=== PATIENT | female | born 1930 | race Caucasian/White ===

== ENCOUNTER → 2016-09-10 | Outpatient (CLI) | payer MEDICARE, OTHER ==
[~2016-09-10] MED LIST: ACID CONTROL150 MG PO; ASPIRIN LO-DOSE81 MG PO; BRILINTA90 MG PO; BUDESONIDE EC3 MG PO; CIPRO500 MG PO; CRANBERRY500 M1 PO; CRESTOR10 MG PO; ECOTRIN325 MG PO; FOLIC ACID1 MG PO; LACTINEX (FLORA1 TAB PO; LEVOTHROID (SY50 MCG PO; LEXAPRO10 MG PO; LOMOTIL1 TAB PO; LOPRESSOR12.5 MG/0. PO; LOTREL 10-20 M1 EACH PO; NITROSTAT0.4 MG SL; PLAVIX75 MG PO; PRINIVIL (ZESTRI5 MG PO; PROBIOTIC1 EAC1 PO; TRICOR145 MG PO; TYLENOL325 MG PO; ZOCOR40 MG PO; ZOFRAN ODT4 MG PO
== END | disposition disaster alternative care site (69) ==
LOC: GRAD 13:02
DX: R63.4 Abnormal weight loss (principal); N26.1 Atrophy of kidney (terminal); R19.7 Diarrhea, unspecified

== ENCOUNTER 2016-11-17 08:16 | Observation (INO) | payer MEDICARE, OTHER ==
[~2016-11-17] VITALS: Ht 167.6 cm; Wt 62.2 kg
--- NOTE | ~2016-11-17 | CON ---
PATIENT'S NAME: AKILAH HIGGINS [facility] AGE: 86 Y [address] ROOM: [address] [address] LOCATION: [facility] [place] ADMIT DATE: 11/17/2016 Consultation DISCHARGE DATE: FAMILY PHYSICIAN: THOMAS HART MD ATTENDING PHYSICIAN: THOMAS HART REFERRING PHYSICIAN: Thomas Hart MD REASON FOR CONSULT: Syncope. HISTORY OF PRESENT ILLNESS: This is an 86-year-old female who was admitted to the hospital after a syncopal episode while she was sitting at the table. It was witnessed by her daughter. When she awoken, she was lightheaded, dizzy, and nauseated and vomited. Her cardiac enzymes were all normal. Her EKG showed a regular sinus rhythm with sinus virginie without ST or T-wave changes. The patient reports that she has been having problems with lightheadedness mostly with standing. She was seen by Dr. Bae on 11/05/2016, and her blood pressure medication was decreased at that time. Her blood pressures were in the 100s/50s. She has still continued to have problems with lightheadedness and dizziness. She denies any problems with palpitations. She denies problems with shortness of breath, orthopnea, PND, or peripheral edema. PAST MEDICAL HISTORY: 1. Coronary artery disease with non-Q-wave myocardial infarction in 2014. 2. Peripheral vascular disease with SILVERLIGHT DEVELOPER and stent to the left renal artery. 3. Essential hypertension. 4. Hyperlipidemia. 5. History of CVA x2. 6. Hypothyroidism. 7. Chronic kidney disease. 8. Diabetes mellitus, diet controlled. PAST SURGICAL HISTORY: 1. Back surgery x2. 2. Hysterectomy. 3. Appendectomy. 4. Cholecystectomy. 5. Left heart catheterization with PTCA and stent to the RCA on 04/14/2001. 6. Left heart catheterization with renal angiogram on 07/12/2004. 7. Cholecystectomy. 8. Left heart catheterization with renal angiogram, PTCA and stent, LAD on 06/13/2006. 9. Left heart catheterization, renal angiogram, PTCI and stent, mid LAD on 07/04/2008. 10. Renal angiogram with SILVERLIGHT DEVELOPER and stent, left renal artery on 08/17/2008. PATIENT'S NAME: AKILAH HIGGINS [facility] AGE: 86 Y [address] ROOM: [address] [address] LOCATION: [facility] [place] ADMIT DATE: 11/17/2016 Consultation DISCHARGE DATE: FAMILY PHYSICIAN: THOMAS HART MD ATTENDING PHYSICIAN: THOMAS HART 11. Left heart catheterization, PTCI - stent diagonal on 06/26/2010. 12. Left heart catheterization, PTCI - stent RCA on 12/14/2014. ALLERGIES: CODEINE, SULFA, PEANUTS, LACTOSE, AND BANANAS. CURRENT MEDICATIONS: 1. Aspirin 81 mg daily. 2. Fenofibrate 145 mg daily. 3. Folic acid 1 mg tablet daily. 4. Levothyroxine 50 mcg 1 tablet daily. 5. Lisinopril 5 mg b.i.d. 6. Nitrostat 0.4 mg sublingual as needed. 7. Probiotic 1 capsule orally daily. 8. Simvastatin 40 mg every bedtime. 9. Budesonide EC 3 mg extended release 3 tablets daily. 10. Ondansetron 4 mg p.r.n. 11. Ranitidine 150 mg every day. FAMILY HISTORY: Father is ; he had TB and heart disease. Mother of pancreatic cancer and heart disease. She has a brother who is alive with TB and a sister with lung disease. SOCIAL HISTORY: She smokes 6 cigarettes a day and has done so since 1954. She does not drink alcohol. She is . REVIEW OF SYSTEMS: GENERAL: She has complaints of some mild fatigue. HEAD: No history of headaches. EYES: No blurred vision or double vision. EARS: No problems with hearing. NOSE: No epistaxis or rhinorrhea. MOUTH: No gingival bleeding. THROAT: Denies sore throat, hoarseness, or difficulty swallowing. CV: Per HPI. PULMONARY: She denies cough, hemoptysis, or sputum production. GASTROINTESTINAL: Negative for nausea, vomiting, or diarrhea. No melena or hematochezia. No recent GI bleed or blood in the stools. : Negative for dysuria, polyuria, or hematuria. No frequent urination. ENDOCRINE: She is a diet-controlled diabetic. She is on Synthroid replacement therapy. NEUROLOGIC: Denies anxiety. DERMATOLOGIC: She denies skin rashes or cancers. PATIENT'S NAME: GISELA AKILAH Karen [facility] AGE: 86 Y [address] ROOM: [address] [address] LOCATION: [facility] [place] ADMIT DATE: 11/17/2016 Consultation DISCHARGE DATE: FAMILY PHYSICIAN: THOMAS HART MD ATTENDING PHYSICIAN: THOMAS HART HEMATOLOGIC: Negative for bleeding disorders. MUSCULOSKELETAL: She denies arthralgias or myalgias. PHYSICAL EXAMINATION: VITAL SIGNS: Height is 5 feet 6 inches. She is 66 inches tall. Blood pressure is 147/59, heart rate is 52 to 60. GENERAL: She is alert and oriented. SKIN: Warm, dry, and pink. HEENT: Pupils equal, round, and react briskly to light. EOMs are intact. NECK: Soft and supple. No lymphadenopathy or thyromegaly. JVD is flat. No carotid bruits. CV: Regular with a normal S1 and S2, without murmur, rub, or click. LUNGS: Lung sounds are clear anteriorly and posteriorly without evidence of wheezes, rales, or rhonchi. GASTROINTESTINAL: Her abdomen is soft. Bowel sounds are present in all 4 quadrants. No hepatosplenomegaly is noted. EXTREMITIES: Show no peripheral edema. No clubbing. No cyanosis. Distal pulses are 2+/4. NEUROLOGIC: She is alert and oriented to person, place, and time. SKIN: Warm, dry, and pink. PSYCHIATRIC: Mood and affect are pleasant and normal. LABORATORY DATA: Lactate was 0.9. Cardiac enzymes are negative x3. CBC: Hemoglobin is 9.5, WBC is 6.3, platelets are 324. Chem panel: Glucose is 103, BUN 16, creatinine 1.3, sodium 129, potassium is 4.1, magnesium is 2.2, TSH is 1.5. ASSESSMENT: Syncope: We are going to do orthostatic blood pressures and place her on telemetry. We did review her EKG, it is showing a sinus rhythm, sinus bradycardia. Further recommendations will be forthcoming as Dr. Bae reviews her echocardiogram that was previously ordered. KRISTINA VERAS APRN FOR MD MILY TUCKER/mansoorl /[id number] d: 11/19/16299 t: 11/29/16921, CONSULTATION REPORT
--- NOTE | ~2016-11-17 | ENPV ---
Carotid Duplex Study Demographics Patient Name AKILAH HIGGINS Date of Study 11/18/2016 Patient Number [id number] Gender Female Date of 1930 Age 86 Visit Number [id number] Height 66 Accession Number [id number] Weight 135 Referring Tanner Mixon MD Physician MD Physician Physician Ordering Physician In Processing Instructor Quality Assurance Practice Manager Christina Lloyd [facility] Conclusions Summary The right internal carotid artery has severe, 60-79%, plaque and stenosis. There is a moderate degree of smooth homogeneous plaque in the right carotid bifurcation . The right vertebral artery is antegrade. The left internal carotid artery has mild, 1-39%, plaque and stenosis. There is a mild amount of smooth homogeneous plaque in the left carotid bifurcation and proximal ICA. The left vertebral artery is antegrade. Procedure Type of Study: Cerebral:Carotid, Carotid Doppler Bilateral. Appropriate Use Criteria:7 Allergies - Peanuts:(pcn,codiene,sulfa, lactose,peanuts, bannanas). - Penicillin. Blood Pressure:Right arm 118/43 mmHg.Left arm 126/43 mmHg. Heart Rate:66 BPM. Patient Status:Routine. Study Location:Inpatient Portable. Technical Quality:Good visualization. Velocities are measured in cm/s ; Diameters are measured in cm Carotid Right Measurements Carotid Left Measurements + +--------+--------+ + + + +--------+- -------+ + + !Location !PSV !EDV !Angle !%Stenosis ! !Location !PSV !E DV !Angle !%Stenosis ! + +--------+--------+ + + + +--------+- -------+ + + !Prox CCA !108 !12 !60 ! ! !Prox CCA !106 !1 2 !58 ! ! + +--------+--------+ + + + +--------+- -------+ + + !Dist CCA !80 !10 !60 ! ! !Dist CCA !82 !1 2 !56 ! ! + +--------+--------+ + + + +--------+- -------+ + + !Prox ICA !239 !47 !58 ! ! !Prox ICA !94 !1 8 !56 ! ! + +--------+--------+ + + + +--------+- -------+ + + !Dist ICA !206 !40 !58 ! ! !Dist ICA !108 !2 1 !56 ! ! + +--------+--------+ + + + +--------+- -------+ + + !Prox ECA !224 ! !48 ! ! !Prox ECA !121 ! !56 ! ! + +--------+--------+ + + + +--------+- -------+ + + !Vertebral !53 !9 !60 ! ! !Vertebral !94 !1 9 !58 ! ! + +--------+--------+ + + + +--------+- -------+ + + - There is antegrade vertebral flow noted on the right side. - There is antegrade verte bral flow noted on the left side. - Add'l Measurements:ICAPSV/CCAPSV 2.21.ICAEDV/CCAEDV 3.92. - Add'l Measurements:ICAPS V/CCAPSV 1.02.ICAEDV/CCAEDV 1.8. Impressions Right Impression There is a moderate degree of smooth homogeneous plaque in the right carotid bifurcation . The right vertebral artery is antegrade. Left Impression There is a mild amount of smooth homogeneous plaque in the left carotid bifurcation and proximal ICA. The left vertebral artery is antegrade. Signature dtt: Phani Liang: 11/18/16 0900 Physician Self Edit
--- NOTE | ~2016-11-17 | ER ---
PATIENT'S NAME: AKILAH HIGGINS [facility] AGE: 86 Y [address] ROOM: [place] [address] [place] [facility] [place] ADMIT DATE: 11/17/2016 ER/Outpatient Report DISCHARGE DATE: FAMILY PHYSICIAN: THOMAS HEDRICK MD ATTENDING PHYSICIAN: THOMAS HEDRICK Admission date and time documented on the medical record. I saw the patient at 0825 hours. CHIEF COMPLAINT: Syncopal episode. HISTORY OF PRESENT ILLNESS: The patient is an 86-year-old female, who was sitting at the table with her daughters and she became unresponsive, had a syncopal episode. She was lightheaded, dizzy with nausea. She did vomit once. No diarrhea, no incontinence of stool or urine, no seizure activity. The patient was brought to the emergency room by paramedics via ambulance for evaluation. The patient did have orthostatic changes on her blood pressures here in the emergency department. She was quite weak, lethargic, and lightheaded. No chest pain, shortness of breath, or abdominal pain. No headache; eyes, ears, nose, throat, neck, or spine pain. Did not hit her head. No fall or trauma. No recent coughs, colds, flus, fever, chills, or sweats. No skin eruptions or rash. No joint or muscle swelling, redness, or pain. Does have a history of hypothyroidism, but no diabetes. No history of neuro changes or psych issues. HOME MEDICATIONS: See attached medication list. ALLERGIES: CODEINE, PENICILLIN, SULFA, AND LACTULOSE. SOCIAL HISTORY: The patient smokes about 3 to 4 cigarettes a day, nondrinker. SIGNIFICANT PAST MEDICAL HISTORY: Atherosclerotic ischemic heart disease, coronary artery disease, renal artery stenosis, anxiety, depression, hypertension, diverticulosis, diverticulitis, dyslipidemia, hypothyroidism, tobacco abuse, colon polyps. OPERATIONS: Back surgery, appendectomy, cholecystectomy, hysterectomy, colonoscopy with polypectomy, renal artery stenting, cardiac catheterization with PTCA and stenting. PATIENT'S NAME: AKILAH HIGGINS [facility] AGE: 86 Y [address] ROOM: [place] [address] [place]: [facility] [place] ADMIT DATE: 11/17/2016 ER/Outpatient Report DISCHARGE DATE: FAMILY PHYSICIAN: THOMAS HEDRICK MD ATTENDING PHYSICIAN: THOMAS HEDRICK REVIEW OF SYSTEMS: All systems reviewed by me are negative with the exception of those discussed in the history of present illness. PHYSICAL EXAMINATION: VITAL SIGNS: Temperature 96.9 tympanic, pulse 64 and regular, respirations 20, blood pressure 156/66, O2 saturation on room air is 97%. HEAD: Normocephalic. EYES EARS, NOSE, AND THROAT: Clear. Mucous membranes are little dry. NECK: No nuchal rigidity. No findings of adenopathy. LUNGS: Clear. Good air flow. No rales, rhonchi, or wheezes. HEART: Regular. Pulses are palpable. No chest wall or ribcage pain to palpation. ABDOMEN: Soft, nondistended, nontender. Good bowel tones. No organomegaly or abnormal mass palpable. EXTREMITIES: No peripheral edema, cyanosis, or deformity. NEURO: Cranial nerves intact. No lateralized sign. The patient is awake, cooperative. Motor and sensory intact. SKIN: Clear. No skin eruptions or rash. LABORATORY DATA AND X-RAYS: Point of care cardiac enzymes are normal x2, 2 hours apart. CPK was normal x2, 2 hours apart. Pro calcitonin was less than 0.05. Lactate was 0.9. CMS was normal except for a low sodium of 129, elevated glucose of 103, low calcium of 7.6, elevated creatinine of 1.3, low GFR of 39, magnesium 2.2. CRP was 1.38. Thyroid tests were normal. ProBNP was normal at 304. D-dimer was elevated at 2.57. White count 6300, 74 segs, 15 lymphs, 8 monos, 2 eos, hemoglobin was 9.5, hematocrit 28.5, platelet count was 324,000. PTT was 29, protime 10 with an INR of 0.95. EKG showed sinus rhythm. No acute ST elevation, ischemic change, or arrhythmia. CT scan of the head showed no acute bleed, midline shift mass effect, or skull fracture. Did do a V/Q scan of the lungs because of the elevated D-dimer, results pending. Did give the patient 1 L normal saline IV in the emergency room and Zofran for nausea. The hydration with 1 L normal saline markedly improved the patient's condition. IMPRESSION: 1. Syncope, etiology undetermined. 2. Orthostatic blood pressure changes. 3. Atherosclerotic ischemic heart disease and coronary artery disease. 4. History of renal artery stenosis. 5. Anxiety and depression. 6. Hypertension. 7. Dyslipidemia. 8. Hypothyroidism. 9. Tobacco abuse. PATIENT'S NAME: AKILAH HIGGINS [facility] AGE: 86 Y [address] ROOM: [place] [address] LOCATION: [facility] [place] ADMIT DATE: 11/17/2016 ER/Outpatient Report DISCHARGE DATE: FAMILY PHYSICIAN: THOMAS HEDRICK MD ATTENDING PHYSICIAN: THOMAS HEDRICK PLAN: I discussed the patient with Dr. Ortiz, her personal physician. We will admit the patient to the hospital for further evaluation and treatment. Discussion ensued with the patient concerning my findings and recommendations. She and her family understand. She will be admitted outpatient. MD VINAYAK MORALEZ/modl /[id number] d: 11/17/16 2129 t: 11/18/16 0650, OUTPATIENT REPORT
--- NOTE | ~2016-11-17 | ECHO ---
Transthoracic Echocardiography Report (TTE) Demographics Patient Name AKILAH HIGGINS Date of Study 11/18/2016 Patient Number [id number] Visit Number [id number] Date of 1930 Room Number G3204 Accession Number [id number] Gender Female Age 86 year(s) Referring Tanner Govea Water Control Supervisor Christina Lloyd Physician [facility] Physician Interpreting [facility] Cloth Shrinking Machine Operator Helper Physician Jessy DÍAZ Supervising Ordering Physician /MLP Nurse Stress Plumbing Engineering Draftsperson Conclusions Contractility Score Summary Normal Left Ventricular contractility was noted. Summary Normal LV/RV size and systolic function. The estimated left ventricular ejection fraction is 65%. Moderate concentric left ventricular hypertrophy. Diastolic assessment reveals Grade I diastolic dysfunction. The left atrium is mildly dilated by LA volume index measurement. Mild tricuspid regurgitation by color Doppler.There is mild pulmonary hypertension. The pulmonary pressure (RVSP) is 47 mmHg. Procedure Type of Study TTE procedure:2D Echocardiogram. Procedure Date Date: 11/18/2016 Start: 08:38 AM Study Location: Inpatient Portable Indications:Syncope. Appropriate Use Criteria: 9 Patient Status: Routine HR: 63 bpm BP: 126/43 mmHg Allergies - Peanuts:(pcn,codiene,sulfa, lactose,peanuts, bannanas). - Penicillin. M-Mode/2D Measurements LV Diastolic Dimension: 3.74 cm LV Systolic Dimension: 2.25 cm LV Septum Diastolic: 1.34 cm LV PW Diastolic: 1.34 cm AO Root Dimension: 2.9 cm Cardiac Output: 5.68 l/min AV Cusp Separation: 0.9 cm LA volume: 75 ml LVOT: 2 cm LVOT VTI: 28.7 cm TAPSE: 1.65 cm LV Stroke volume: 90.12 ml Doppler Measurements AV Peak Velocity: 1.92 m/s MV Peak E-Wave: 0.97 m/s AV Peak Gradient: 14.75 mmHg MV Peak A-Wave: 1.2 m/s AV Mean Gradient: 7 mmHg MV E/A Ratio: 0.81 LVOT Peak Velocity: 1.26 m/s MV P1/2t: 65 msec TR Gradient:36.97 mmHg PV Peak Velocity: 1.48 m/s Estimated RAP:10 mmHg PV Peak Gradient: 8.76 mmHg Estimated RVSP: 47 mmHg Estimated PASP: 46.97 mmHg E' Septal Velocity: 0.06 m/s A' Septal Velocity: 0.09 m/s E' Lateral Velocity: 0.08 m/s A' Lateral Velocity: 0.1 m/s Findings Left Ventricle Moderate concentric left ventricular hypertrophy. Diastolic assessment reveals Grade I diastolic dysfunction. Right Ventricle Normal right ventricle structure and function. Left Atrium The left atrium is mildly dilated by LA volume index measurement. Right Atrium Normal right atrial size. IVC measures 1.04 cm with inspiratory collapse. Mitral Valve Trivial mitral regurgitation by color Doppler. Moderate to severe mitral annular calcification. Aortic Valve The aortic valve is moderately to severely sclerotic. The non coronary cusp is severely calcific. Tricuspid Valve Mild tricuspid regurgitation by color Doppler. There is mild pulmonary hypertension. The pulmonary pressure (RVSP) is 47 mmHg. Pulmonic Valve PV is not well seen. Contractility Score LV regional wall motion:(0-Non visualized 1-Normal 2-Hypokinesis 3-Akinesis 4-Dyskinesis 5-Aneurysm) Signature dtt: JESSY ORLANDO dtd: 11/18/16 0838 Physician Self Edit
[~2016-11-17 08:16] MED LIST changes: -ACID CONTROL150 MG PO; -ASPIRIN LO-DOSE81 MG PO; -BUDESONIDE EC3 MG PO; -FOLIC ACID1 MG PO; -LACTINEX (FLORA1 TAB PO; -PRINIVIL (ZESTRI5 MG PO; -PROBIOTIC1 EAC1 PO; -ZOFRAN ODT4 MG PO
[2016-11-17 08:56] LABS: BASOPHIL % 0.2 %; EOSINOPHIL # 0.2 K/uL (0.0-0.5); EOSINOPHIL % 2.4 %; HEMATOCRIT 28.5 % (30.0-46.0); HEMOGLOBIN 9.5 g/dL (10.0-15.0); IMMATURE GRANULOCYTE # 0.1 K/uL (0.0-0.3); IMMATURE GRANULOCYTE % 0.8 %; LYMPHOCYTE # 0.9 K/uL (0.8-4.0); LYMPHOCYTE % 14.9 %; MCH 31.7 pg (27.0-34.0); MCHC 33.3 gm/dL (32.0-36.5); MONOCYTE # 0.5 K/uL (0.0-1.0); MONOCYTE % 7.8 %; MPV 9.1 fl (9.4-12.4); NEUTROPHIL # (ANC) 4.7 K/uL (1.8-7.8); NEUTROPHIL % 73.9 %; NRBC % 0 /100WBC (0-0.00); PLATELET COUNT 324 K/uL (150-450); RDW-CV 12.3 % (11.9-14.6); WBC 6.3 K/uL (4.0-11.0)
[2016-11-17 09:04] LABS: INR - (THERAPEUTIC) 0.95 (0.92-1.07); PTT 29 SECONDS (25-32)
[2016-11-17 09:19] LABS: ALBUMIN 2.5 gm/dL (3.5-5.0); ALK PHOS 69 IU/L (33-138); ALT 14 IU/L (12-78); ANION GAP 14.1 (10.0-19.0); AST 18 IU/L (10-40); BLOOD UREA NITROGEN 16 mg/dL (6-24); CALCIUM 7.6 mg/dL (8.5-10.5); CHLORIDE 97 mMol/L (96-110); CO2 22 mMol/L (22-32); CPK 34 IU/L (21-215); CREATININE 1.3 mg/dL (0.5-1.1); ESTIMATED GFR (MDRD EQUATION) 39; MAGNESIUM 2.2 mg/dL (1.8-2.6); POTASSIUM 4.1 mMol/L (3.7-5.1); SODIUM 129 mMol/L (135-145); TOTAL PROTEIN 5.1 g/dL (6.0-8.4)
[2016-11-17 09:28] LABS: TOTAL BILIRUBIN 0.4 mg/dL (0.0-1.5)
[2016-11-17 11:18] LABS: CPK 32 IU/L (21-215)
[2016-11-17] MEDS ORDERED: BUDESONIDE EC3 MG PO (15:11)
[2016-11-17] MEDS ORDERED: ZOFRAN ODT4 MG PO (15:12)
[2016-11-17] MEDS ORDERED: ACID CONTROL150 MG PO (15:12)
[2016-11-17] MEDS ORDERED: FOLIC ACID1 MG PO (15:13)
[2016-11-17] MEDS ORDERED: PRINIVIL (ZESTRI5 MG PO (15:13)
[2016-11-17] MEDS ORDERED: ASPIRIN LO-DOSE81 MG PO (15:14)
[2016-11-17] MEDS ORDERED: PROBIOTIC1 EAC1 PO (15:14)
--- NOTE | 2016-11-17 17:56 | NUR ---
Patient is an 86 year old female who was admitted for syncope. Patient was at home with her daughters and had gone to get a cup of coffee and then went unresponsive. The ambulance brought her in. She has done this previously another time. Patient did come out of it. Did have orthostatic BP down in the ER. Did PE protocol workup. Echo in AM, to ask Dr. Bae to read. Caratoid doppler in the AM. EKG and cardiac enzymes at 0600. Tele ordered. VSS and on RA. Denies nausea and vomiting or pain. Daughters present at the time of admission. Ultra high fall risk for the patient fell recently and was syncopal. Alert and oriented x3. Cooperative with cares.
--- NOTE | 2016-11-18 03:51 | NUR ---
Significant Event: AAOX3. Regular diet, Gluten-free, pt knows what foods to avoid. PIV to L) Wrist SL. 600ml up in pitcher for days credit. Pt cooperative with cares, and uses call light appropriately. Denied feeling faint/dizziness/pain throughout shift. On Tele -- No calls. Follow up:
[2016-11-18 06:19] LABS: CPK 27 IU/L (21-215)
--- NOTE | 2016-11-18 14:22 | NUR ---
A-NUTRITION F/U (+)BM. DIET ADVANCED TO SOLIDS ON 11/17. NO C/O NAUSEA OR PAIN LABS: NA 138, K+ 3.5, GLU 110, BUN 4, SHOW CARD LETTERER 0.5, ALB 2.3 MEDS: MAG-OX, K-PHOS, CARAFATE DIET RX: LOW RESIDUE DIET. PO INATKE HAS BEEN 50-100%. RECEIVES ENSURE ENLIVE TID. VISITED W/PT RE: SUPPLEMENT; SHE REPORTS THAT SHE IS DRINKING THE ENSURE, BUT DOES NOT LIKE THE STRAWBERRY. APPETITE IS FAIR. SHE DOES NOT LIKE THE ENSURE CLEAR. D-AT NUTRITION RISK W/DECREASED ORAL INTAKE R/T ALTERED GI FXN AEB PT REPORT, RECENT SURGERY, AND INTAKE RECORDS. I-1)D/C ENSURE CLEAR TID 2)CONTINUE ENSURE ENLIVE TID; CHANGE THE STRAWBERRY AT DINNER TO CHOCOLATE, PER PT REQUEST. M/E-GOAL: PO INTAKE >/=50% FOR DURATION OF ADMIT 1)F/U PO INTAKE, SUPPLEMENT, GI, AND POC IN 3-5 DAYS 2)ASSIST NEEDED
--- NOTE | 2016-11-18 16:39 | NUR ---
SPOKE TO PATIENT AND HER DAUGHTER FROM [place],INTRODUCED CM AND OUR ROLE. PATIENT LIVES WITH HER DAUGHTER SARAH IN [place]. PLNA IS FOR HER TO GO BACK TO LIVE WITH SARAH BUT THE DAUGHTER FROM [place] VOICES CONCERNS ABOUT AKILAH BEING ALONE WHILE SARAH WORKS. I PRESENTED TO HER THE OPTION OF PRIVATE CARE GIVERS AND SARAH IS NOT OPENED TO THIS. PRESENETED OPTION OF HHC BUT HER DAUGHER DOES NOT FEEL THAT HHC WILL PROVIDE ENOUGH HELP. PRESENTED THE OPTION OF AKILAH GOING TO AN PATRICIA BUT HER DAUGHTER INFORMS ME THAT AN PATRICIA IS NOT AN OPTION THAT THEY WILL ONLY ALLOW AKILAH TO LIVE WITH SARAH. I PRESENTED THE OPTION OF AAA AND SHE WOULD LIKE INFO ABOUT THIS. I ALSO PRESENTED THE OPTION OF ADULT DAY CARE WHICH IS $54.00 A DAY AT A MINUM OF 4. HOURS. SHE IS GOING TO TALK TO HER SISTER ABOUT THIS. WILL CONT TO FOLLOW NEEDED.
--- NOTE | 2016-11-18 17:27 | NUR ---
AAOx3. Cooperative with cares. Up w/SBA, GB, and walker. Showered today. Ultra high fall risk w/syncopal episode at home. IV s/l'd to LW. Tolerating regular/gluten free diet well. Orthostatics done today per cardiology. VSS, afebrile, on RA. Denies n/v/d and pain. Encourage to dangle low and move slow.
--- NOTE | 2016-11-19 03:48 | NUR ---
Significant Event: Patient alert and oriented X4. Up with one person assist and walker. Dr. Bae (cardio) called to see if he was coming up so daughters wouldn't have to wait, he stated he would be around first thing in the morning. Fell on 11/14. Possibly home today pending cardiology? Vitals stable and on room air. Patient on telemetry, no calls. No complaints of dizziness this shift. Walking well. Denies pain or nausea this shift. VOiding fine. Follow up: Monitor dizziness
[2016-11-19] MEDS ORDERED: LACTINEX (FLORA1 TAB PO (09:53)
--- NOTE | 2016-11-19 11:30 | NUR ---
DISCHARGE: Pt. and daughter were explained discharge instructions, educated on medication changes, and d/c instructions. Verbalized understanding, no questions or concerns. Left with all belongings and prescriptions. IV d/c'd and tele off. Taken to front door by aide and driven home by daughter.
== END 2016-11-19 11:30 | disposition disaster alternative care site (69) ==
LOC: GMED 08:16 → GMSU 12:47
PROVIDERS: Emergency Medicine; ADMIT Family Medicine
DX: I95.1 Orthostatic hypotension (principal); I25.10 Atherosclerotic heart disease of native coronary artery without angina pectoris; I12.9 Hypertensive chronic kidney disease with stage 1 through stage 4 chronic kidney disease, or unspecified chronic kidney disease; E11.22 Type 2 diabetes mellitus with diabetic chronic kidney disease; N18.9 Chronic kidney disease, unspecified; E03.9 Hypothyroidism, unspecified; I25.2 Old myocardial infarction; E78.5 Hyperlipidemia, unspecified; F17.210 Nicotine dependence, cigarettes, uncomplicated; Z86.73 Personal history of transient ischemic attack (TIA), and cerebral infarction without residual deficits; Z88.2 Allergy status to sulfonamides; Z88.8 Allergy status to other drugs, medicaments and biological substances; Z79.82 Long term (current) use of aspirin; Z79.899 Other long term (current) drug therapy; Z90.49 Acquired absence of other specified parts of digestive tract; Z90.710 Acquired absence of both cervix and uterus; Z98.890 Other specified postprocedural states
CPT/HCPCS: A9539; A9540; G0378; J7030

== ENCOUNTER → 2016-11-17 | Outpatient (CLI) | payer MEDICARE, OTHER | END | disposition disaster alternative care site (69) | LOC: GAMB 07:51 | DX: R11.2 Nausea with vomiting, unspecified (principal); R42 Dizziness and giddiness; Z79.899 Other long term (current) drug therapy; Z88.0 Allergy status to penicillin; Z88.2 Allergy status to sulfonamides | CPT/HCPCS: A0425; A0427; J2405 ==

== ENCOUNTER 2016-11-28 08:41 | Emergency (ER) | payer MEDICARE, OTHER ==
--- NOTE | ~2016-11-28 | ER ---
PATIENT'S NAME: AKILHA HIGGINS [facility] AGE: 86 Y [address] ROOM: [place] [address] LOCATION: ED ADMIT DATE: 11/28/2016 ER/Outpatient Report DISCHARGE DATE: 11/28/2016 FAMILY PHYSICIAN: Matt Hart MD ATTENDING PHYSICIAN: Ilana Rousseau Time of Arrival: 0841 hours. Time of Evaluation: 0900 hours. IDENTIFICATION: An 86-year-old female. CHIEF COMPLAINT: An 86-year-old female with a syncopal episode. HISTORY OF PRESENT ILLNESS: The patient apparently had gone out for a smoke, came inside and was sitting in her seated walker when her daughter came in and found her kind of arched back and unresponsive. With stimulation, she did respond slowly and then took a while to respond. She has done this one other time. She was hospitalized on November 17, 2016, for a syncopal episode very similar in nature at that time. Apparently, she had a workup to include cardiac workup and everything was found to be unremarkable according to the patient and her daughter and Dr. Hart. The patient just feels kind of washed out, does not feel well, but nothing specific. No other complaints. ALLERGIES: PENICILLIN, SULFA, AND CODEINE. CURRENT MEDICATIONS: 1. Folic acid 1 mg daily. 2. Fenofibrate 145 mg daily. 3. Ranitidine 150 mg daily. 4. Levothyroxine 0.05 mg daily. 5. Simvastatin 40 mg daily. 6. Nitrostat p.r.n. 7. Ondansetron p.r.n. 8. Baby aspirin 81 mg daily. 9. Probiotics daily. MEDICAL PROBLEMS: Coronary artery disease with previous non Q-wave CT in 2015, peripheral vascular disease with stent to the left renal artery, essential hypertension, hyperlipidemia, history of CVA x2, hypothyroidism, chronic kidney disease, diabetes mellitus, diet controlled. PATIENT'S NAME: AKILAH HIGGINS [facility] AGE: 86 Y [address] ROOM: [place] [address] LOCATION: ED ADMIT DATE: 11/28/2016 ER/Outpatient Report DISCHARGE DATE: 11/28/2016 FAMILY PHYSICIAN: Matt Hart MD ATTENDING PHYSICIAN: Ilana Rousseau PRIOR SURGERIES: Back surgery x2, hysterectomy, appendectomy, cholecystectomy, cardiac stents, left renal artery stent. FAMILY HISTORY: Father , he had TB and heart disease. Mother secondary to pancreatic cancer and heart disease. Brother alive with TB and a sister with lung disease. SOCIAL HISTORY: The patient lives here in town. Her daughter lives with her. Tobacco use, 4- 5 cigarettes per day. Alcohol use, denies. Drug use, denies. REVIEW OF SYSTEMS: All systems reviewed and negative other than what is noted in the HPI. PHYSICAL EXAMINATION: VITAL SIGNS: Height 5 feet 6 inches, weight 63.7 kg. Blood pressure 155/70, pulse 66, respirations 16, saturations 95%. GENERAL: An 86-year-old female, in no acute distress. HEENT: Head: Normocephalic, atraumatic. Ears: TMs translucent, both ears. Eyes: Pupils are equal and reactive to light and accommodation. Extraocular movements intact. Nose: Mucosa pink. No lesions. Mouth: No lesions. Pharynx benign. NECK: Supple. No lymphadenopathy. LUNGS: Clear to auscultation. No rhonchi, wheezes, or rales. HEART: Regular rate and rhythm. No murmur, rub, or gallop. ABDOMEN: Bowel sounds are present. Soft, nondistended, nontender. SKIN: [place], warm, and dry. No lesions or rashes noted. NEURO: The patient is alert and oriented x4. Cranial nerves 2 through 12 grossly intact. Motor strength 5/5 throughout. Sensation is intact to light touch. No lower extremity edema. No calf tenderness. LABORATORY DATA: Hemoglobin 10.2, which is improved from 9.5, November 17, 2016; hematocrit 31.1; platelets 405; white count 7.7. INR 0.99. Sodium 134, which is up from 129, November 17, 2016; potassium 3.9; chloride 100; CO2 of 24; BUN 16; creatinine 1.2, which is stable; blood sugar 98. Liver enzymes are normal. Cardiac enzymes, troponin-I less than 0.040, CK-MB less than 0.5. EKG, sinus rhythm at 62 beats per minute. No acute ST elevation or depression, first-degree AV block. One-view chest x-ray, no acute process. Pending Radiology over-read. Head CT without contrast, no acute findings and stable head CT since prior imaging, November 17, 2016. PATIENT'S NAME: AKILAH HIGGINS [facility] AGE: 86 Y [address] ROOM: [place], [place] [address] LOCATION: [facility] ADMIT DATE: 11/28/2016 ER/Outpatient Report DISCHARGE DATE: 11/28/2016 FAMILY PHYSICIAN: Matt Hart MD ATTENDING PHYSICIAN: Ilana Rousseau IMPRESSION: Syncope. PLAN: Discussed with the patient, her daughter, as well as Dr. Hart. She will be discharged home on a 48-hour Holter monitor. Rest. Follow up immediately if any recurrent symptoms or problems or follow up with Dr. Hart tomorrow, follow up sooner if any problems. The patient and her daughter understand and agree, and all questions have been answered. ILANA ROUSSEAU MD CAR/modl /[id number] d: 11/28/16 2254 t: 12/06/16 1923, OUTPATIENT REPORT
[2016-11-28 09:14] LABS: BASOPHIL % 0.3 %; EOSINOPHIL # 0.2 K/uL (0.0-0.5); HEMATOCRIT 31.1 % (30.0-46.0); HEMOGLOBIN 10.2 g/dL (10.0-15.0); IMMATURE GRANULOCYTE % 0.4 %; LYMPHOCYTE # 1.3 K/uL (0.8-4.0); LYMPHOCYTE % 16.3 %; MCH 31.6 pg (27.0-34.0); MCHC 32.8 gm/dL (32.0-36.5); MCV 96.3 fl (83.0-98.0); MONOCYTE # 0.6 K/uL (0.0-1.0); MONOCYTE % 7.3 %; MPV 8.8 fl (9.4-12.4); NEUTROPHIL # (ANC) 5.6 K/uL (1.8-7.8); NEUTROPHIL % 72.7 %; NRBC % 0 /100WBC (0-0.00); RBC 3.23 M/uL (3.00-5.00); RDW-CV 12.3 % (11.9-14.6); WBC 7.7 K/uL (4.0-11.0)
[2016-11-28 09:19] LABS: PLATELET COUNT 405 K/uL (150-450)
[2016-11-28 09:34] LABS: ALBUMIN 2.6 gm/dL (3.5-5.0); ALK PHOS 73 IU/L (33-138); ALT 17 IU/L (12-78); ANION GAP 13.9 (10.0-19.0); AST 25 IU/L (10-40); BLOOD UREA NITROGEN 16 mg/dL (6-24); CHLORIDE 100 mMol/L (96-110); CO2 24 mMol/L (22-32); CPK 37 IU/L (21-215); CREATININE 1.2 mg/dL (0.5-1.1); ESTIMATED GFR (MDRD EQUATION) 43; MAGNESIUM 2.2 mg/dL (1.8-2.6); POTASSIUM 3.9 mMol/L (3.7-5.1); SODIUM 134 mMol/L (135-145); TOTAL BILIRUBIN 0.4 mg/dL (0.0-1.5); TOTAL PROTEIN 6.1 g/dL (6.0-8.4)
[2016-11-28 09:40] LABS: INR - (THERAPEUTIC) 0.99 (0.92-1.07); PROTIME 10.4 SECONDS (9.8-11.4); PTT 27 SECONDS (25-32)
== END 2016-11-28 11:23 | disposition disaster alternative care site (69) ==
LOC: GMED 08:41
PROVIDERS: Family Medicine
DX: R55 Syncope and collapse (principal); I25.2 Old myocardial infarction; I25.10 Atherosclerotic heart disease of native coronary artery without angina pectoris; E03.9 Hypothyroidism, unspecified; F17.210 Nicotine dependence, cigarettes, uncomplicated; I12.9 Hypertensive chronic kidney disease with stage 1 through stage 4 chronic kidney disease, or unspecified chronic kidney disease; E11.22 Type 2 diabetes mellitus with diabetic chronic kidney disease; E78.5 Hyperlipidemia, unspecified; N18.9 Chronic kidney disease, unspecified; Z90.710 Acquired absence of both cervix and uterus; Z90.49 Acquired absence of other specified parts of digestive tract; Z88.0 Allergy status to penicillin; Z88.2 Allergy status to sulfonamides; Z88.5 Allergy status to narcotic agent; Z79.899 Other long term (current) drug therapy; Z95.818 Presence of other cardiac implants and grafts; Z86.73 Personal history of transient ischemic attack (TIA), and cerebral infarction without residual deficits; Z79.82 Long term (current) use of aspirin

== ENCOUNTER → 2016-11-28 | Outpatient (CLI) | payer MEDICARE, OTHER ==
[~2016-11-28] MED LIST changes: +ACID CONTROL150 MG PO; +ASPIRIN LO-DOSE81 MG PO; +BUDESONIDE EC3 MG PO; +FOLIC ACID1 MG PO; +LACTINEX (FLORA1 TAB PO; +PRINIVIL (ZESTRI5 MG PO; +PROBIOTIC1 EAC1 PO; +ZOFRAN ODT4 MG PO
== END | disposition disaster alternative care site (69) ==
LOC: GAMB 08:20
DX: R55 Syncope and collapse (principal); R11.10 Vomiting, unspecified; Z79.899 Other long term (current) drug therapy; Z88.0 Allergy status to penicillin; Z88.2 Allergy status to sulfonamides; Z88.6 Allergy status to analgesic agent
CPT/HCPCS: A0425; A0427